=== PATIENT | male | born 1960 | race Native Hawaiian/Other Pacific Islander ===

== ENCOUNTER 2016-10-23 17:12 | Outpatient (CLI) | payer BC, OTHER ==
[~2016-10-23 17:12] MED LIST: ACET-689 PO; CLARITIN10 M1 PO; LEVO500T PO; MEDROL DOSEPAK4 MG OR
[2016-10-23] MEDS ORDERED: TAMS0.4C PO (17:31)
[2016-10-23] MEDS ORDERED: ONDA2INJ2 IV (17:32)
[2016-10-23] MEDS ORDERED: LISITAB PO (17:32)
[2016-10-23] MEDS ORDERED: ENOX30IN2 SC (17:33)
[2016-11-22] MEDS ORDERED: CELEXA10 MG PO (14:23)
[2016-11-22] MEDS ORDERED: PERCOCET1 TA3 PO (14:23)
== END 2016-10-23 17:15 | disposition short-term general hospital (02) ==
LOC: AMB 17:12
DX: R06.02 Shortness of breath (principal); M79.605 Pain in left leg; M79.89 Other specified soft tissue disorders; R10.84 Generalized abdominal pain; Z98.890 Other specified postprocedural states
CPT/HCPCS: A0425; A0427

== ENCOUNTER 2016-10-23 17:24 | Emergency (ER) | payer BC ==
[~2016-10-23] VITALS: Ht 182.9 cm; Wt 121.6 kg
[2016-10-23] MEDS ORDERED: TAMS0.4C PO (17:31)
[2016-10-23] MEDS ORDERED: ONDA2INJ2 IV (17:32)
[2016-10-23] MEDS ORDERED: LISITAB PO (17:32)
[2016-10-23] MEDS ORDERED: ENOX30IN2 SC (17:33)
[2016-10-23 18:01] LABS: PLATELET COUNT 412 K/uL (142-355)
[2016-10-23 18:08] LABS: POTASSIUM 3.6 mmol/L (3.6-5.2); SODIUM 136 mmol/L (136-145)
[2016-10-23 18:49] LABS: PARTIAL THROMBOPLASTIN TIME 23.8 SECONDS (24.5-33.6)
[2016-10-23 21:14] VITALS: BP 148/69; TEMP 98.7
== END 2016-10-23 21:16 | disposition home or self-care (01) ==
LOC: ED 17:24
DX: L53.9 Erythematous condition, unspecified (principal); R23.4 Changes in skin texture; Z98.890 Other specified postprocedural states; R00.0 Tachycardia, unspecified; I44.7 Left bundle-branch block, unspecified
CPT/HCPCS: 80053; 85027; 85379; 85730; 93005; 99283; J1885

== ENCOUNTER 2020-04-06 19:23 | Emergency (ER) | payer OTHER ==
[~2020-04-06] VITALS: Ht 180.3 cm; Wt 119.8 kg
[~2020-04-06 19:23] MED LIST changes: +CELEXA10 MG PO; +ENOX30IN2 SC; +LISITAB PO; +ONDA2INJ2 IV; +PERCOCET1 TA3 PO; +TAMS0.4C PO
[2020-04-06 19:57] LABS: PLATELET COUNT 429 K/uL (142-355)
[2020-04-06 20:05] LABS: POTASSIUM 3.4 mmol/L (3.6-5.2)
[2020-04-07 00:10] VITALS: BP 145/81; TEMP 98.3
== END 2020-04-07 00:10 | disposition home or self-care (01) ==
LOC: ED 19:30
PROVIDERS: Emergency Medicine
DX: J40 Bronchitis, not specified as acute or chronic (principal); R50.9 Fever, unspecified; B34.9 Viral infection, unspecified; J06.9 Acute upper respiratory infection, unspecified; R05 Cough; Z20.828 Contact with and (suspected) exposure to other viral communicable diseases
CPT/HCPCS: 36415; 36600; 80053; 82805; 83605; 83880; 84484; 85027; 85610; 85730; 87040; 87077; 87185; 87186; 87205; 87502; 87635; 87651; 94664; 96365; 99284; J0696; U0003

== ENCOUNTER 2020-08-28 10:14 | Emergency (ER) | payer OTHER ==
[~2020-08-28] VITALS: Ht 180.3 cm; Wt 119.8 kg
[2020-08-28 10:24] VITALS: TEMP 98.5
[2020-08-28 11:01] LABS: PLATELET COUNT 344 K/uL (142-355)
[2020-08-28 11:06] LABS: POTASSIUM 3.3 mmol/L (3.6-5.2)
[2020-08-28 12:29] VITALS: BP 166/88
== END 2020-08-28 12:37 | disposition home or self-care (01) ==
LOC: ED 10:14
PROVIDERS: Hospitalist
DX: N23 Unspecified renal colic (principal); R10.84 Generalized abdominal pain; N20.0 Calculus of kidney; Z87.442 Personal history of urinary calculi
CPT/HCPCS: 80053; 81000; 85027; 96360; 96365; 96375; 99284; J0696; J1885; J2270; J2405

== ENCOUNTER 2021-03-09 08:28 | Emergency (ER) | payer OTHER ==
[~2021-03-09] VITALS: Ht 180.3 cm; Wt 119.8 kg
[2021-03-09 08:35] VITALS: TEMP 98.7
[2021-03-09 09:20] LABS: PLATELET COUNT 288 K/uL (142-355)
[2021-03-09 10:34] VITALS: BP 167/85
== END 2021-03-09 10:34 | disposition home or self-care (01) ==
LOC: ED 08:28
PROVIDERS: Emergency Medicine
DX: B34.9 Viral infection, unspecified (principal); Z20.822 Contact with and (suspected) exposure to COVID-19; E87.6 Hypokalemia; I10 Essential (primary) hypertension
CPT/HCPCS: 80048; 85027; 87502; 87635; 96372; 99283; J0696; J1100; U0003

== ENCOUNTER 2021-03-15 17:54 | Emergency (ER) | payer OTHER ==
[~2021-03-15] VITALS: Ht 180.3 cm; Wt 119.7 kg
[2021-03-15 18:05] VITALS: BP 182/99; TEMP 97.9
[2021-03-15 18:30] LABS: PLATELET COUNT 400 K/uL (142-355)
[2021-03-15 18:38] LABS: POTASSIUM 3.9 mmol/L (3.6-5.2)
== END 2021-03-15 20:01 | disposition left against medical advice (07) ==
LOC: ED 17:54
PROVIDERS: Emergency Medicine
DX: R10.84 Generalized abdominal pain (principal); Z87.442 Personal history of urinary calculi; I10 Essential (primary) hypertension; Z53.29 Procedure and treatment not carried out because of patient's decision for other reasons
CPT/HCPCS: 36415; 80048; 81000; 85027; 99283

== ENCOUNTER 2021-03-16 17:33 | Emergency (ER) | payer OTHER ==
[~2021-03-16] VITALS: Ht 180.3 cm; Wt 119.8 kg
[2021-03-16 21:15] VITALS: BP 156/91; TEMP 97.8
== END 2021-03-16 21:20 | disposition home or self-care (01) ==
LOC: ED 17:33
DX: N20.0 Calculus of kidney (principal); N21.0 Calculus in bladder; Z87.442 Personal history of urinary calculi
CPT/HCPCS: 81000; 99283

== ENCOUNTER 2021-07-03 20:01 | Emergency (ER) | payer OTHER ==
[~2021-07-03] VITALS: Ht 180.3 cm; Wt 122.0 kg
[2021-07-03] MEDS ORDERED: AMOX875T8 PO (20:47)
[2021-07-03] MEDS ORDERED: LISITAB PO (20:47)
[2021-07-03] MEDS ORDERED: KETO10TA34 PO (20:47)
[2021-07-03 22:00] VITALS: BP 178/101; TEMP 98.2
== END 2021-07-03 22:02 | disposition home or self-care (01) ==
LOC: ED 20:01
DX: K02.9 Dental caries, unspecified (principal); I10 Essential (primary) hypertension; F17.210 Nicotine dependence, cigarettes, uncomplicated
CPT/HCPCS: 96372; 99283; J1885

== ENCOUNTER 2021-08-24 21:16 | Emergency (ER) | payer OTHER ==
[~2021-08-24] VITALS: Ht 180.3 cm; Wt 119.3 kg
[~2021-08-24 21:16] MED LIST changes: +AMOX875T8 PO; +KETO10TA34 PO
[2021-08-24 22:27] LABS: PLATELET COUNT 304 K/uL (142-355)
[2021-08-24 22:32] LABS: POTASSIUM 3.6 mmol/L (3.6-5.2)
[2021-08-24] MEDS ORDERED: DOXYCYCL HYC100 MG PO (23:23)
[2021-08-24 23:30] VITALS: BP 150/72; TEMP 98.6
== END 2021-08-24 23:30 | disposition home or self-care (01) ==
LOC: ED 21:16
PROVIDERS: Emergency Medicine
DX: J01.80 Other acute sinusitis (principal); U07.1 COVID-19
CPT/HCPCS: 36415; 80053; 85027; 87635; 99283; U0003